=== PATIENT | female | born 1965 | race Two or more races ===

== ENCOUNTER 2019-09-15 16:16 | Emergency (ER) | payer MEDICAID ==
[~2019-09-15] VITALS: Ht 162.6 cm; Wt 68.0 kg
[2019-09-15 19:04] VITALS: BP 108/60
== END 2019-09-15 19:04 | disposition home or self-care (01) ==
LOC: ER 16:16
DX: R05 Cough (principal); Z03.818 Encounter for observation for suspected exposure to other biological agents ruled out; F17.210 Nicotine dependence, cigarettes, uncomplicated
CPT/HCPCS: 71045; 99283